=== PATIENT | male | born 1975 | race Caucasian/White ===

== ENCOUNTER 2017-11-16 16:31 | Emergency (ER) | payer OTHER ==
[2017-11-16] MEDS ORDERED: KETOROLAC 30 MG/1 ML SDV IVP ONE (16:42)
[2017-11-16] MEDS ORDERED: NS 1,000 ML IV ONE (16:42)
[2017-11-16] MEDS ORDERED: DIAZEPAM 5 MG/ML 1 ML SYR IVP ONE ×2 (16:42→17:42)
[2017-11-16] MEDS ORDERED: DIAZEPAM 5 MG/ML 1 ML SYR ONE (16:43)
[2017-11-16] MEDS ORDERED: KETOROLAC 30 MG/1 ML SDV ONE (16:43)
[2017-11-16] MEDS ORDERED: HYDROmorphONE/DILAUDID 2 MG/ML INJ IVP ONE ×2 (17:55→20:34)
[2017-11-16] MEDS ORDERED: HYDROmorphONE/DILAUDID 1 MG/ML INJ ONE ×2 (17:57→20:36)
[2017-11-16] MEDS ORDERED: LIDOCAINE 4%/MENTHOL 1% PATCH TD ONE (19:01)
[2017-11-16] MEDS ORDERED: PATCH REMOVAL 1 EA PATCH TD SCH (21:00)
--- NOTE | 2017-11-16 21:04 | EDPHY ---
H & P Stated Complaint: Low back pain after heavy lifting Time Seen by Provider: 11/16/17 16:45 HPI/ROS: Chief complaint: Low back pain History of present illness: This is a 42-year-old male brought to the emergency department by EMS for evaluation of low back pain. Patient reports a few days ago while at work he was attempting to lift a trailer when he felt something pull in the left lower aspect of his back. Initially it was sore but got better. Today he was sitting at work all day and when he went to stand up he felt the same area pull causing pain to the point he could not move and had to call EMS. EMS did provide him with fentanyl in route. He describes pain primarily in the left lower aspect of his back. It does not radiate. There is no associated signs or symptoms including no paresthesias, no bowel or bladder dysfunction, no fever, no history of direct trauma. Review of systems: A 10 point review of systems was obtained and other than described above was negative - Personal History Current Tetanus/Diphtheria Vaccine: Unsure Current Tetanus Diphtheria and Acellular Pertussis (TDAP): Unsure - Medical/Surgical History Hx Asthma: No Hx Chronic Respiratory Disease: No Hx Diabetes: No Hx Cardiac Disease: No Hx Renal Disease: No Hx Cirrhosis: No Hx Alcoholism: No Hx HIV/AIDS: No Hx Splenectomy or Spleen Trauma: No Other PMH: denies - Social History Smoking Status: Never smoked Additional Social History: No history of IV drug abuse - Physical Exam Exam: General Appearance: Alert, appears very uncomfortable. Eyes: Pupils equal and round no pallor or injection. ENT, Mouth: Mucous membranes moist. Respiratory: There are no retractions, lungs are clear to auscultation. Cardiovascular: Regular rate and rhythm. Gastrointestinal: Abdomen is soft and non tender, no masses, bowel sounds normal. Neurological: Alert and oriented x4. Cranial nerves 2-12 grossly intact. Strength and sensation intact and symmetrical. Straight leg raise test is negative bilaterally. Skin: Warm and dry, no rashes. Musculoskeletal: Neck is supple non tender. There is no pain to palpation, no crepitus, bony deformity or step-off on palpation of the entire spine. Tender over the left lumbar paraspinal muscles. Extremities are symmetrical, full range of motion. Psychiatric: Patient is oriented X 3, there is no agitation. Constitutional: Initial Vital Signs Temperature (C) 36.7 C 11/16/17 16:31 Heart Rate 65 11/16/17 16:31 Respiratory Rate 16 11/16/17 16:31 Blood Pressure 138/81 H 11/16/17 16:31 O2 Sat (%) 93 11/16/17 16:31 O2 Delivery Mode Room Air O2 (L/minute) 2 Allergies/Adverse Reactions: No Known Allergies Allergy (Verified 11/16/17 17:17) Home Medications: Medication Instructions Recorded Diazepam [Valium 2 MG (*)] 2 mg PO TID #10 tab 11/16/17 oxyCODONE/APAP 5/325 [Percocet 1 tab PO Q4H #10 tab 11/16/17 5/325 (*)] Medical Decision Making ED Course/Re-evaluation: Patient was seen under the supervision of my secondary supervising physician Dr. Lanre Thacker. Patient presents with severe left lower back pain. He appears to have a lumbar sprain/strain. As there was no direct trauma, no pain along the spine itself and he is neurologically intact I do not believe imaging studies are warranted. Multiple rounds of medications have been provided, ultimately he was able start moving under his own power. He did tolerate these medications well without periods of respiratory depression or altered mental status. He will be discharged home. Home care including ibuprofen, Percocet and low-dose Valium was discussed. He is to follow up with a primary care doctor this week for recheck. Strict return precautions were given. The patient and his spouse voiced understanding and agreement with plan. Differential Diagnosis: Included but not limited to lumbar sprain/strain, herniated intervertebral disc , unlikely fracture, spinal cord lesion or cauda equina syndrome - Data Points Medications Given: Discontinued Medications Diazepam (Valium) 5 mg IVP EDNOW ONE Stop: 11/16/17 16:43 Last Admin: 11/16/17 16:46 Dose: 5 mg Diazepam (Valium) 5 mg IVP EDNOW ONE Stop: 11/16/17 17:43 Last Admin: 11/16/17 19:29 Dose: 5 mg Hydromorphone HCl (Dilaudid) 1 mg IVP EDNOW ONE Stop: 11/16/17 17:56 Last Admin: 11/16/17 18:00 Dose: 1 mg Hydromorphone HCl (Dilaudid) 1 mg IVP EDNOW ONE Stop: 11/16/17 20:35 Last Admin: 11/16/17 20:38 Dose: 1 mg Sodium Chloride (Ns) 1,000 mls @ 0 mls/hr IV EDNOW ONE; Wide Open PRN Reason: Protocol Stop: 11/16/17 16:43 Last Admin: 11/16/17 16:46 Dose: 1,000 mls Ketorolac Tromethamine (Toradol) 30 mg IVP EDNOW ONE Stop: 11/16/17 16:43 Last Admin: 11/16/17 16:46 Dose: 30 mg Miscellaneous Medication (Icy Hot Lidocaine/Menthol 4%/1% Patch) 1 patch TD EDNOW ONE Stop: 11/16/17 19:02 Last Admin: 11/16/17 19:08 Dose: 1 patch Departure - Departure Disposition: Home, Routine, Self-Care Clinical Impression: Back pain Qualifiers: Back pain location: low back pain Chronicity: acute Back pain laterality: left Sciatica presence: without sciatica Qualified Code(s): M54.5 - Low back pain Condition: Good Instructions: Acute Low Back Pain (ED) Additional Instructions: Follow-up with worker's compensation or a primary care doctor for recheck In regards to pain control see the following: Use ibuprofen 600 mg 4 times a day for the next 2-3 days for pain In addition You have been prescribed Percocet for pain. Percocet contains Tylenol, do not take extra Tylenol/acetaminophen/Apap with it. It is sedating. In addition you have been prescribed Valium I also recommend lidocaine patches If symptoms worsen or new symptoms develop return to the emergency room for recheck Referrals: NONE *PRIMARY CARE P,. [Primary Care Provider] - As per Instructions [facility],. [Clinic] - As per Instructions Prescriptions: Diazepam [Valium 2 MG (*)] 2 mg PO TID #10 tab oxyCODONE/APAP 5/325 [Percocet 5/325 (*)] 1 tab PO Q4H #10 tab
[2017-11-16 21:29] VITALS: BP 135/68
== END 2017-11-16 21:29 | disposition home or self-care (01) ==
LOC: EDUNIT#
DX: M54.5 Low back pain (principal); E86.9 Volume depletion, unspecified
CPT/HCPCS: 96374; J1170; J1885; J3360